=== PATIENT | female | born 1945 | race African-American/Black ===

== ENCOUNTER → 2017-01-18 | Outpatient (CLI) | payer MEDICARE, BC ==
--- NOTE | 2017-01-21 12:38 | MM ---
Reason for exam: screening (asymptomatic). Last mammogram was performed 1 year and 1 month ago. History: Patient is postmenopausal. Physical Findings: A clinical breast exam by your physician is recommended on an annual basis and results should be correlated with mammographic findings. MG Screening Mammo w CAD Bilateral CC and MLO view(s) were taken. Prior study comparison: December 20, 2015, bilateral MG screening mammo w CAD. December 01, 2014, bilateral MG screening mammo w CAD. November 12, 2013, bilateral digital screening mammo w/CAD. September 25, 2010, bilateral digital screening mammogram. The breast tissue is heterogeneously dense. This may lower the sensitivity of mammography. Regional calcifications medial right breast, unchanged from 2014. No significant changes when compared with prior studies. ASSESSMENT: Negative, BI-RAD 1 RECOMMENDATION: Routine screening mammogram of both breasts in 1 year.
== END | disposition home or self-care (01) ==
LOC: RADMAMWWP 16:05
PROVIDERS: ATTEND Internal Medicine
DX: Z12.31 Encounter for screening mammogram for malignant neoplasm of breast (principal)

== ENCOUNTER → 2018-02-10 | Outpatient (CLI) | payer MEDICARE, BC ==
--- NOTE | 2018-02-12 08:47 | MM ---
Reason for exam: screening (asymptomatic). Last mammogram was performed 1 year and 1 month ago. History: Patient is postmenopausal. Physical Findings: A clinical breast exam by your physician is recommended on an annual basis and results should be correlated with mammographic findings. MG 3D Screening Mammo W/Cad Bilateral CC and MLO view(s) were taken. Prior study comparison: January 18, 2017, bilateral MG screening mammo w CAD. December 20, 2015, bilateral MG screening mammo w CAD. The breast tissue is heterogeneously dense. This may lower the sensitivity of mammography. Benign calcifications right breast. No significant changes when compared with prior studies. ASSESSMENT: Benign, BI-RAD 2 RECOMMENDATION: Routine screening mammogram of both breasts in 1 year.
== END | disposition home or self-care (01) ==
LOC: RADMAMWWP 13:47
PROVIDERS: ATTEND Internal Medicine
DX: Z12.31 Encounter for screening mammogram for malignant neoplasm of breast (principal)
CPT/HCPCS: 77063; 77067

== ENCOUNTER 2019-01-02 07:13 | Day surgery (SDC) | payer MEDICARE, BC ==
[2018-12-31 16:22] VITALS: BMI 27.4
[~2019-01-02 07:13] MED LIST: LACTATED RINGERS 1,000 ML IV SCH; LIDOCAINE 1% 20 ML VIAL (10MG/ML) FOR IV START INTRADERMA PRN
[2019-01-02 07:55] VITALS: TEMP 98
[2019-01-02] MEDS ORDERED: MIDAZOLAM 2 MG/2 ML VIAL ONE (08:11)
[2019-01-02] MEDS ORDERED: PROPOFOL 10 MG/ML 20 ML VIAL IV ONE (08:11)
[2019-01-02 08:17] LABS: Glucose,Whole Blood 134 mg/dL (75-99)
--- NOTE | 2019-01-02 08:31 | P.PCN ---
Date of Procedure: 01/02/19 Procedure(s) Performed: BRIEF HISTORY: Patient is a 73-year-old pleasant female, scheduled for an elective colonoscopy as a part of screening for colorectal neoplasia. PROCEDURE PERFORMED: Colonoscopy with snare polypectomy. PREOPERATIVE DIAGNOSIS: Screening for colon cancer. IV sedation per Anesthesia. PROCEDURE: After informed consent was obtained, the patient, was brought into the endoscopy unit. IV sedation was administered by Anesthesia under continuous monitoring. Digital rectal examination was normal. Initially the Olympus CF- 160 flexible video colonoscope was then inserted in the rectum, gradually advanced into the cecum without any difficulty. Careful examination was performed as the scope was gradually being withdrawn. Ileocecal valve and the appendiceal orifice were visualized and appeared normal. Prep was excellent. Mucosa of the cecum, ascending colon, appeared normal. In the distal transverse colon there was a 1.5 cm broad-based polyp that was removed by snare polypectomy. In the descending colon there was a 7-8 mm polyp that was removed by snare polypectomy. Rest of the transverse colon, descending colon, sigmoid colon, and rectum appeared normal. Scattered sigmoid diverticulosis. Retroflexion was performed in the rectum and no lesions were seen. The patient tolerated the procedure well. IMPRESSION: 1.5 cm broad-based distal transverse colon polyp status post polypectomy 7-8 mm descending colon polyp status post snare polypectomy Scattered sigmoid diverticulosis RECOMMENDATIONS: Findings of this examination were discussed with the patient as well as a family. She was advised to follow with the biopsy results. If the biopsy shows adenoma, she can have a repeat colonoscopy in 3 years.
[2019-01-02 08:53] VITALS: BP 136/77; PULSE 54; RESP 18
== END 2019-01-02 09:33 | disposition home or self-care (01) ==
LOC: ORWHC2ENDO 07:13
PROVIDERS: ATTEND Internal Medicine Gastroenterology
DX: Z12.11 Encounter for screening for malignant neoplasm of colon (principal); D12.4 Benign neoplasm of descending colon; D12.3 Benign neoplasm of transverse colon; I10 Essential (primary) hypertension; E78.5 Hyperlipidemia, unspecified; K57.30 Diverticulosis of large intestine without perforation or abscess without bleeding; E11.9 Type 2 diabetes mellitus without complications; Z79.84 Long term (current) use of oral hypoglycemic drugs; Z79.899 Other long term (current) drug therapy
CPT/HCPCS: 88305; 45385; J2250; J2704

== ENCOUNTER → 2019-02-20 | Outpatient (CLI) | payer MEDICARE, BC ==
--- NOTE | 2019-02-24 08:40 | MM ---
Reason for exam: screening (asymptomatic). Last mammogram was performed 1 year ago. History: Patient is postmenopausal. Physical Findings: A clinical breast exam by your physician is recommended on an annual basis and results should be correlated with mammographic findings. MG 3D Screening Mammo W/Cad Bilateral CC and MLO view(s) were taken. Prior study comparison: February 10, 2018, bilateral MG 3d screening mammo w/cad. January 18, 2017, bilateral MG screening mammo w CAD. The breast tissue is heterogeneously dense. This may lower the sensitivity of mammography. Finding: There are stable typically benign vascular calcifications in the right breast. No significant changes in finding since February 10, 2018 and January 18, 2017. ASSESSMENT: Benign, BI-RAD 2 RECOMMENDATION: Routine screening mammogram of both breasts in 1 year.
== END | disposition home or self-care (01) ==
LOC: RADMAMWWP 14:21
PROVIDERS: ATTEND Internal Medicine
DX: Z12.31 Encounter for screening mammogram for malignant neoplasm of breast (principal)
CPT/HCPCS: 77063; 77067

== ENCOUNTER → 2020-09-08 | Outpatient (CLI) | payer MEDICARE, BC ==
--- NOTE | 2020-09-08 11:48 | MM ---
Reason for exam: screening (asymptomatic). Last mammogram was performed 1 year and 7 months ago. History: Patient is postmenopausal. Physical Findings: A clinical breast exam by your physician is recommended on an annual basis and results should be correlated with mammographic findings. MG 3D Screening Mammo W/Cad Bilateral CC and MLO view(s) were taken. Prior study comparison: February 20, 2019, bilateral MG 3d screening mammo w/cad. February 10, 2018, bilateral MG 3d screening mammo w/cad. The breast tissue is heterogeneously dense. This may lower the sensitivity of mammography. There are benign appearing round, dystrophic calcifications bilaterally. Indeterminate group of calcifications right lower inner quadrant posterior depth. This finding is changed when compared with previous exams. ASSESSMENT: Incomplete: need additional imaging evaluation, BI-RAD 0 RECOMMENDATION: Special view mammogram of the right breast. [facility] will attempt to contact patient to return for supplemental views.
== END | disposition home or self-care (01) ==
LOC: RADMAMWWP 08:50
PROVIDERS: ATTEND Internal Medicine
DX: Z12.31 Encounter for screening mammogram for malignant neoplasm of breast (principal)
CPT/HCPCS: 77063; 77067

== ENCOUNTER → 2020-09-14 | Outpatient (CLI) | payer MEDICARE, BC ==
--- NOTE | 2020-09-14 12:00 | MM ---
Reason for exam: additional evaluation requested from abnormal screening. Last mammogram was performed less than 1 month ago. History: Patient is postmenopausal. Physical Findings: Nurse did not find any significant physical abnormalities on exam. MG 3D Work Up W/Cad RT CC with magnification, ML with magnification, and ML view(s) were taken of the right breast. Prior study comparison: September 08, 2020, bilateral MG 3d screening mammo w/cad. February 20, 2019, bilateral MG 3d screening mammo w/cad. The breast tissue is heterogeneously dense. This may lower the sensitivity of mammography. Finding: There are intermediate concern, suspicious amorphous, grouped/clustered calcifications in the lower inner quadrant, posterior position of the right breast 9cm from the nipple. New finding and increase in number of calcifications since September 08, 2020 and February 20, 2019. These results were verbally communicated with the patient and result sheet given to the patient on 09/14/20. ASSESSMENT: Suspicious, BI-RAD 4 RECOMMENDATION: Stereotactic core biopsy of the right breast. Called Dr. Barrientos's office with mammographic findings and has scheduled an appointment for the patient for 09/29/20 at 7:[address] Fine. Biopsy scheduled for 09/29/20 at 8:00. PRELIMINARY REPORT CALLED AND FAXED TO DR. FINE ON 09/14/20.
== END | disposition home or self-care (01) ==
LOC: RADMAMWWP 07:31
PROVIDERS: ATTEND Internal Medicine
DX: R92.8 Other abnormal and inconclusive findings on diagnostic imaging of breast (principal)
CPT/HCPCS: 77065; G0279; 77061

== ENCOUNTER → 2020-09-29 | Day surgery (SDC) | payer MEDICARE, BC ==
--- NOTE | 2020-09-29 08:04 | P.GSHP ---
History of Present Illness H&P Date: 09/29/20 Chief Complaint: abnormal right breast mammogram Myrna is a 74 year old -[place] female seen in consultation for Dr. Barrient[place] [id number]. This revealed an area of concern in the right breast and additional views were performed and [id number]. On this study there were into immediate concern suspicious amorphous group/cluster calcifications in the lower inner quadrant posterior position of the right breast. Stereotactic core biopsy was recommended. Last bilateral mammogram was approximately 1 year ago. She does not feel any lumps masses or nodules of concern in her breasts. She is not complaining of any pain or nipple discharge in her breast. She has not had any prior breast surgery. She has not had any recent infection or trauma to the breast. Caffeine:coffee in am 1 cup/ pop in afternoon about 12 oz Nicotine: Negative Theophylline: Occasional Family history: sister: liver cancer brother: prostate cancer mother: lymphoma Hormonal History: menarche: 13 breast fed: no, age at first : 28 menopause: 53 BCP: 1 year hormones: none Surgical history: Umbilical hernia repair Left total hip replacement Left eye cataract surgery Medical history: HTN DM Social history: Nicotine: Negative Alcohol: weekly drugs: none - Constitutional Constitutional: Denies chills, Denies fever - EENT Comment: cataract surgery last week left eye Ears: deny: decreased hearing, tinnitus Ears, nose, mouth and throat: Denies headache, Denies sore throat - Breasts Breasts: bilateral: as per HPI - Cardiovascular Cardiovascular: Reports high blood pressure - Respiratory Respiratory: Denies cough, Denies 7 - Gastrointestinal Gastrointestinal: Denies abdominal pain, Denies diarrhea, Denies nausea, Denies vomiting - Genitourinary (Female) Genitourinary: Denies dysuria, Denies hematuria - Menstruation Menstruation: Reports postmenopausal - Musculoskeletal Musculoskeletal: Denies myalgias - Integumentary Integumentary: Denies pruritus, Denies rash - Neurological Neurological: Denies numbness, Denies weakness - Psychiatric Psychiatric: Denies anxiety, Denies depression - Endocrine Endocrine: Denies fatigue, Denies weight change - Hematologic/Lymphatic Comment: none - Allergic/Immunologic Comment: none Past Medical History Past Medical History: Diabetes Mellitus, Hyperlipidemia, Hypertension History of Any Multi-Drug Resistant Organisms: None Reported Past Surgical History: Joint Replacement Additional Past Surgical History / Comment(s): left hip replaced, colonoscopy Past Anesthesia/Blood Transfusion Reactions: No Reported Reaction Past Psychological History: No Psychological Hx Reported Smoking Status: Never smoker Past Alcohol Use History: Occasional Past Drug Use History: None Reported - Past Family History Mother Sister(s) Family Medical History: Cancer Medications and Allergies Home Medications Medication Instructions Recorded Confirmed Type Cholecalciferol [Vitamin D3] 1,000 unit PO DAILY 12/31/18 09/29/20 History Lovastatin [Mevacor] 40 mg PO HS 12/31/18 09/29/20 History Multivit-Min/Iron/Folic/Lutein 1 each PO DAILY 12/31/18 09/29/20 History [Centrum Silver Women Tablet] Vitamin B Complex 1 each PO DAILY 12/31/18 09/29/20 History lisinopriL [Zestril] 10 mg PO DAILY 12/31/18 09/29/20 History metFORMIN HCL [Glucophage] 500 mg PO BID 12/31/18 09/29/20 History Timolol 0.25% Ophth Soln [Timoptic 1 drop BOTH EYES HS 09/29/20 09/29/20 History 0.25% Ophth Soln] Allergies Allergy/AdvReac Type Severity Reaction Status Date / Time No Known Allergies Allergy Verified 09/29/20 07:10 Surgical - Exam Vital Signs Temp Pulse Resp BP 98.1 F 69 16 136/86 09/29/20 07:13 09/29/20 07:13 09/29/20 07:13 09/29/20 07:13 BMI 27.4 - General well developed, well nourished, no distress - Eyes normal ocular movement - ENT Left eye small incision site at the superior aspect patient with recent cataract surgery incision appears to be healing well no hearing loss, no congestion - Neck trachea midline - Respiratory normal respiratory effort, clear to auscultation - Cardiovascular Rhythm: regular Heart Sounds: normal: S1, S2 - Abdomen Abdomen: soft, non tender, no guarding, no rigid, no rebound - Integumentary normal turgor - Neurologic no disoriented, no combative - Musculoskeletal normal gait, normal posture - Psychiatric oriented to time, oriented to person, oriented to place, speech is normal, memory intact Breast exam: BRA: 34B inspection: Bilateral grade 3 ptosis Palpation: Right breast: Multi-positional exam fibrocystic changes, no dominant masses or nodules of concern, particularly attention to the lower inner quadrant does not reveal any specific lesion of concern Right axilla: No adenopathy of concern Left breast: Multiple positional exam fibrocystic changes, no dominant masses or nodules of concern Left axilla: No adenopathy of concern Results Mammogram results reviewed from [id number] and [id number] Microcalcifications of concern lower inner quadrant right breast these are considered suspicious by way 4 and stereotactic core biopsy recommended Assessment and Plan Assessment: Impression: 1. Radiographic abnormality right breast/microcalcifications of concern and stereotactic core biopsy recommended 2. Hypertension 3. Recent cataract surgery Plan: 1. Stereotactic core biopsy right breast 2. Will discuss with radiology if we can do the procedure at this time secondary to recent cataract surgery Risk and benefits of procedure discussed with the patient. These include but are not limited to bleeding, infection, reaction to the anesthetic. She understands and wishes to proceed. We will discuss with ophthalmology the fact that she has had recent cataract surgery prior to proceeding with her stereo biopsy. Cc: Dr. Barrientos Encounter: 35 minutes Time with Patient: Greater than 30
--- NOTE | 2020-09-29 09:00 | P.PCN ---
Date of Procedure: 09/29/20 Preoperative Diagnosis: Microcalcifications of concern right breast, lower inner quadrant Postoperative Diagnosis: Same Procedure(s) Performed: Stereotactic core biopsy right breast lower inner quadrant Anesthesia: local Surgeon: Maura Fine Pathology: other (Breast tissue) Disposition: same day Indications for Procedure: Microcalcifications of concern right breast lower inner quadrant Operative Findings: Microcalcifications of concern noted in specimen radiograph Description of Procedure: The patient is a 74-year-old -[place] female who on a routine screening mammogram was noted to have increasing microcalcifications of concern in the lower inner quadrant of the right breast. It was recommended she undergo stereotactic core biopsy. Preoperatively she was seen and was risk and benefits of the procedure were discussed with the patient. Additionally she had recent cataract surgery and clearance was obtained from ophthalmology. Risk and benefits including bleeding, infection, reaction to the anesthetic were discussed with the patient. Alternatives such as watchful waiting or surgical removal in the operating room were also discussed but not recommended. She understood and wished to proceed. The patient was taken to the stereotactic core biopsy room. She was positioned prone on the stereotactic table. A computer language coder film was obtained. The lesion of concern was identified. This was targeted. The breast was prepped using Betadine. 20 mL of 1% lidocaine we used to anesthetize the area of concern. A 9-gauge vacuum-assisted core obtaining biopsy needle was driven to the correct coordinates. The needle was fired. Post fire films were obtained. The needle was noted to be in the correct location. 12 specimens were obtained. Radiograph of the specimen revealed the area of concern had been sampled with microcalcifications in the specimen. A secure marked top Marker was placed. This was noted to be in the correct location. The patient tolerated the procedure in stable condition. She will follow with Dr. Harkins in 1 week. The specimen will be sent to pathology.
[2020-09-29 11:35] VITALS: BP 160/85; PULSE 62; RESP 18; TEMP 98.4
--- NOTE | 2020-10-03 21:10 | MM ---
EXAMINATION TYPE: MG stereo VAD BX RT DATE OF EXAM: 09/29/2020 COMPARISON: 09/08/2020 and 09/14/2020 CLINICAL HISTORY: 74-year-old female abnormal mammogram, referred for stereotactic core needle biopsy of right breast microcalcifications. TECHNIQUE: Stereotactic guided core biopsy of the right breast. FINDINGS: The procedure of stereotactic guided core biopsy was explained to the patient. Benefits, alternatives, and risks were discussed. An informed consent was then obtained. [facility] pathway for biopsy was chosen. Shortness pathway was CC from below approach. I performed the localization, then surgeon, Dr. Torin Murphy performed the remainder of the procedure. A vacuum assisted biopsy gun was used to obtain multiple core samples. The patient tolerated the procedure well without any immediate complication. The patient was kept in the radiology department for short stay after the procedure and then discharged home in stable condition. Targeted calcifications are identified in specimen mammogram. Post biopsy mammogram shows slight 9 mm of superior migration. Residual microcalcifications remain within the lower inner quadrant posteriorly. IMPRESSION: SUCCESSFUL, UNCOMPLICATED STEREOTACTIC GUIDED CORE BIOPSY OF RIGHT BREAST LOWER INNER QUADRANT MICROCALCIFICATIONS. 9 MM OF SUPERIOR CLIP MIGRATION. SOME RESIDUAL MICROCALCIFICATIONS REMAINING. FULL PATHOLOGY RESULTS TO FOLLOW. 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 Recommendation Follow up mammogram of the right breast in 6 months. MTDD
== END ==
LOC: RADMAMWWP 06:54
PROVIDERS: ATTEND Surgery
DX: D24.1 Benign neoplasm of right breast (principal); N60.11 Diffuse cystic mastopathy of right breast; I10 Essential (primary) hypertension; E11.9 Type 2 diabetes mellitus without complications; E78.5 Hyperlipidemia, unspecified; Z79.84 Long term (current) use of oral hypoglycemic drugs; Z79.899 Other long term (current) drug therapy; Z96.642 Presence of left artificial hip joint; Z98.42 Cataract extraction status, left eye; Z98.890 Other specified postprocedural states; Z80.0 Family history of malignant neoplasm of digestive organs; Z80.42 Family history of malignant neoplasm of prostate; Z80.7 Family history of other malignant neoplasms of lymphoid, hematopoietic and related tissues
CPT/HCPCS: 88305; 19081; A4648; J2001

== ENCOUNTER → 2020-10-06 | Outpatient (CLI) | payer MEDICARE, BC ==
[2020-10-06 10:58] VITALS: BP 148/81; PULSE 88; RESP 18; TEMP 98.2
--- NOTE | 2020-10-06 11:11 | P.PN ---
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 She tolerated the procedure with no difficulties. Objective - Vital Signs Vital signs: Vital Signs Temp 98.2 F 10/06/20 10:52 Pulse 88 10/06/20 10:52 Resp 18 10/06/20 10:52 BP 148/81 10/06/20 10:52 Pulse Ox 99 10/06/20 10:52 Intake & Output 10/05/20 10/06/20 10/06/20 18:59 06:59 18:59 Weight 68.039 kg - Exam BMI 27.4 - Constitutional General appearance: Present: average body habitus - EENT Eyes: Present: EOMI ENT: Present: hearing grossly normal - Neck Neck: Present: normal ROM - Respiratory Respiratory: bilateral: CTA - Cardiovascular Rhythm: regular Heart sounds: normal: S1, S2 - Integumentary Integumentary Comment(s): Biopsy site clean and dry no evidence of infection Integumentary: Present: normal turgor - Psychiatric Psychiatric: Present: A&O x's 3, appropriate affect Assessment and Plan Assessment: Impression: 1. 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 Repeat right breast mammogram in 6 months with physician exam at that time Dr. Barrientos encounter 10 minutes, 50% of time in planning and counselling
== END | disposition home or self-care (01) ==
LOC: WWCWWP 10:42
PROVIDERS: ATTEND Surgery
DX: Z53.9 Procedure and treatment not carried out, unspecified reason (principal)

== ENCOUNTER → 2021-03-30 | Outpatient (CLI) | payer MEDICARE, BC ==
--- NOTE | 2021-03-30 14:18 | MM ---
Reason for exam: follow-up at short interval from prior study. Last mammogram was performed 6 months ago. History: Patient is postmenopausal. Benign MG stereo VAD BX RT of the right breast, September 29, 2020. Took hormonal contraceptives for 1 year beginning at age 26. Physical Findings: Nurse did not find any significant physical abnormalities on exam. MG 3D Diag Mammo W/Cad RT CC and MLO view(s) were taken of the right breast. Prior study comparison: September 14, 2020, right breast MG 3d work up w/cad RT. September 08, 2020, bilateral MG 3d screening mammo w/cad. The breast tissue is heterogeneously dense. This may lower the sensitivity of mammography. Stable benign calcifications. No significant new findings when compared with previous films. These results were verbally communicated with the patient and result sheet given to the patient on 03/30/21. ASSESSMENT: Benign, BI-RAD 2 RECOMMENDATION: Follow-up diagnostic mammogram of both breasts in 6 months.
== END | disposition home or self-care (01) ==
LOC: RADMAMWWP 12:42
PROVIDERS: ATTEND Surgery
DX: R92.1 Mammographic calcification found on diagnostic imaging of breast (principal); Z78.0 Asymptomatic menopausal state
CPT/HCPCS: 77065; G0279; 77061

== ENCOUNTER → 2021-10-12 | Outpatient (CLI) | payer MEDICARE, BC ==
--- NOTE | 2021-10-13 09:18 | MM ---
Reason for exam: additional evaluation requested from prior study. Last mammogram was performed 6 months ago. History: Patient is postmenopausal. Benign MG stereo VAD BX RT of the right breast, September 29, 2020. Took hormonal contraceptives for 1 year beginning at age 26. Physical Findings: Nurse did not find any significant physical abnormalities on exam. MG 3D Diag Mammo W/Cad ARIELLE Bilateral CC and MLO view(s) were taken. Prior study comparison: March 30, 2021, right breast MG 3d diag mammo w/cad RT. September 14, 2020, right breast MG 3d work up w/cad RT. Finding: There are four vascular, linear arranged calcifications, not on imaging with magnification. Previous mammotome biopsy in the right breast. These results were verbally communicated with the patient and result sheet given to the patient on 10/12/21. ASSESSMENT: Probably benign, BI-RAD 3 RECOMMENDATION: Routine screening mammogram of the right breast in 6 months.
== END | disposition home or self-care (01) ==
LOC: RADMAMWWP 14:52
PROVIDERS: ATTEND Family Medicine
DX: R92.1 Mammographic calcification found on diagnostic imaging of breast (principal); Z78.0 Asymptomatic menopausal state
CPT/HCPCS: 77066; G0279; 77062

== ENCOUNTER → 2022-05-15 | Outpatient (CLI) | payer MEDICARE, BC ==
--- NOTE | 2022-05-17 18:30 | MM ---
Reason for Exam: Screening (asymptomatic). Last screening mammogram was performed 7 month(s) ago. Patient History: Menarche at age 13. First Full-Term at age 28. Postmenopausal. Hormonal Contraceptives for 1 year from age 26 until age 27. 09/29/2020, Benign Core Biopsy on the right side. Risk Values: Cassi 5 year model risk: 2.3%. NCI Lifetime model risk: 5.0%. Prior Study Comparison: 09/14/2020 Right Diagnostic Mammogram, [facility]. 03/30/2021 Right Diagnostic Mammogram, [facility]. 10/12/2021 Bilateral Diagnostic Mammogram, [facility]. Tissue Density: The breast tissue is heterogeneously dense. This may lower the sensitivity of mammography. Findings: Analyzed By CAD. Microclip medial right breast from prior biopsy. Some residual microcalcifications remain clear. Benign vascular calcifications also present on the right. Areas of asymmetric density bilaterally remain unchanged when compared to prior exams. No significant change from prior exams. Overall Assessment: Benign, BI-RAD 2 Management: Screening Mammogram of both breasts in 1 year. 1. Patient should continue monthly self breast exams. 2. This exam should not preclude additional follow-up of suspicious palpable abnormalities. Electronically signed and approved by: Mitchell Zarco M.D. Radiologist
== END | disposition home or self-care (01) ==
LOC: RADMAMWWP 14:59
PROVIDERS: ATTEND Family Medicine
DX: Z12.31 Encounter for screening mammogram for malignant neoplasm of breast (principal); Z78.0 Asymptomatic menopausal state
CPT/HCPCS: 77063; 77067

== ENCOUNTER → 2022-06-18 | Outpatient (CLI) | payer MEDICARE, BC | END | disposition home or self-care (01) | LOC: LABWHC1 14:29 | PROVIDERS: ATTEND Orthopaedic Surgery | DX: I10 Essential (primary) hypertension (principal); M25.552 Pain in left hip; E78.5 Hyperlipidemia, unspecified | CPT/HCPCS: 36415; 85652; 86140 ==

== ENCOUNTER 2022-10-17 07:46 | Day surgery (SDC) | payer MEDICARE, BC ==
[2022-10-12 14:53] VITALS: BMI 27.4
[~2022-10-17 07:46] MED LIST changes: +LIDOCAINE 1% (10MG/ML) FOR IV START INTRADERMA PRN; -LIDOCAINE 1% 20 ML VIAL (10MG/ML) FOR IV START INTRADERMA PRN
[2022-10-17 08:29] VITALS: TEMP 97.9
[2022-10-17] MEDS ORDERED: PROPOFOL 10 MG/ML 20 ML VIAL IV ONE (08:39)
[2022-10-17 08:43] LABS: Glucose,Whole Blood 105 mg/dL (70-110)
--- NOTE | 2022-10-17 09:05 | P.PCN ---
Date of Procedure: 10/17/22 Procedure(s) Performed: BRIEF HISTORY: Patient is a 77-year-old pleasant white female scheduled for an elective colonoscopy as a part of evaluation of prior history of colon polyps. Her last colonoscopy was 3 years ago. PROCEDURE PERFORMED: Colonoscopy with snare polypectomy PREOPERATIVE DIAGNOSIS: History of colon polyps. IV sedation per Anesthesia. PROCEDURE: After informed consent was obtained, the patient, was brought into the endoscopy unit. IV sedation was administered by Anesthesia under continuous monitoring. Digital rectal examination was normal. Initially the Olympus CF-160 flexible video colonoscope was then inserted in the rectum, gradually advanced into the cecum without any difficulty. Careful examination was performed as the scope was gradually being withdrawn. Ileocecal valve and the appendiceal orifice were visualized and appeared normal. Prep was excellent. Mucosa of the cecum, appeared normal. The ascending colon there was a 1cm polyp removed by snare polypectomy. In the hepatic flexure there was 2 cm broad-based polyp removed by piecemeal snare polypectomy. Rest of the ascending colon, transverse colon, descending colon, sigmoid colon, and rectum appeared normal. At her sigmoid diverticulosis. Retroflexion was performed in the rectum and no lesions were seen. The patient tolerated the procedure well. IMPRESSION: 1 cm ascending colon polyp status post polypectomy 2 cm broad-based hepatic rectal polyp status post polypectomy Scattered sigmoid diverticulosis RECOMMENDATIONS: Findings of this examination were discussed with the patient as well as her family. She was advised to follow with the biopsy results. If the biopsy result adenoma she can have a repeat colonoscopy in 3 years..
[2022-10-17 09:38] VITALS: BP 146/83; PULSE 56; RESP 18
== END 2022-10-17 09:58 | disposition home or self-care (01) ==
LOC: ORWHC2ENDO 07:46
PROVIDERS: ATTEND Internal Medicine Gastroenterology
DX: D12.7 Benign neoplasm of rectosigmoid junction (principal); Z12.11 Encounter for screening for malignant neoplasm of colon; D12.3 Benign neoplasm of transverse colon; D12.2 Benign neoplasm of ascending colon; K57.30 Diverticulosis of large intestine without perforation or abscess without bleeding; K62.1 Rectal polyp; Z87.19 Personal history of other diseases of the digestive system
CPT/HCPCS: 88305; 45385; J2704

== ENCOUNTER → 2024-07-06 | Outpatient (CLI) | payer MEDICARE, BC ==
--- NOTE | 2024-08-04 08:37 | MM ---
Reason for Exam: Screening (asymptomatic). Last mammogram was performed 2 year(s) and 2 month(s) ago. Patient History: Menarche at age 13. First Full-Term at age 28. Postmenopausal. Hormonal Contraceptives for 1 year from age 26 until age 27. 09/29/2020, Benign Core Biopsy on the right side. Risk Values: Cassi 5 year model risk: 2.3%. NCI Lifetime model risk: 4.4%. Prior Study Comparison: 11/12/2013 Bilateral Screening Mammogram, [facility]. 12/01/2014 Bilateral Screening Mammogram, [facility]. 12/20/2015 Bilateral Screening Mammogram, [facility]. 01/18/2017 Bilateral Screening Mammogram, [facility]. 02/10/2018 Bilateral Screening Mammogram, [facility]. 02/20/2019 Bilateral Screening Mammogram, [facility]. 09/08/2020 Bilateral Screening Mammogram, [facility]. 09/14/2020 Right Diagnostic Mammogram, [facility]. 03/30/2021 Right Diagnostic Mammogram, [facility]. 10/12/2021 Bilateral Diagnostic Mammogram, [facility]. 05/15/2022 Bilateral MG 3D screening mammo w/cad, [facility]. Tissue Density: There are scattered areas of fibroglandular density. Findings: Analyzed By CAD. Right breast: There is no suspicious group of microcalcifications or new suspicious mass. Left breast: There is no suspicious group of microcalcifications or new suspicious mass. Overall Assessment: Negative, BI-RAD 1 Management: Screening Mammogram of both breasts in [address] [facility] will attempt to contact patient to return for supplemental views and ultrasound if indicated. Patient should continue monthly self-breast exams. A clinical breast exam by your physician is recommended on an annual basis. This exam should not preclude additional follow-up of suspicious palpable abnormalities. Note on Cassi scores and lifetime risk: 1. A Cassi score greater than 3% is considered moderate risk. If this is the case, consider specialist referral to assess eligibility for a risk reducing agent. 2. If overall lifetime risk for the development of breast cancer is 20% or higher, the patient may qualify for future screening with alternating mammogram and breast MRI. Electronically signed and approved by: Mohamud Xavier DO
== END | disposition home or self-care (01) ==
LOC: RADMAMWWP 11:22
PROVIDERS: ATTEND Family Medicine
DX: Z12.31 Encounter for screening mammogram for malignant neoplasm of breast (principal); Z78.0 Asymptomatic menopausal state; R92.323 Mammographic fibroglandular density, bilateral breasts
CPT/HCPCS: 77063; 77067